=== PATIENT | male | born 2000 | race Caucasian/White ===

== ENCOUNTER 2024-12-26 01:57 | Inpatient (IN) | payer OTHER ==
[2024-12-26] VITALS (19 sets, daily range): BP systolic 91–125; BP diastolic 39–75; PULSE 53–83; RESP 14–18; TEMP 98.3–98.7; O2SAT 95–100
[~2024-12-26] VITALS: Ht 175.3 cm; Wt 60.9 kg
[2024-12-26 03:06] LABS: BASOPHILS # (AUTO) 0.1 X10'3 (0-0.2); BASOPHILS % (AUTO) 0.5 % (0-1); EOSINOPHILS % (AUTO) 0.3 % (0-6); HEMATOCRIT 37.1 % (42.0-52.0); HEMOGLOBIN 12.1 g/dl (14.0-17.9); LYMPHOCYTES # (AUTO) 1.5 X10'3 (1.1-4.8); LYMPHOCYTES % (AUTO) 14.3 % (21-51); MEAN CORPUSCULAR HEMOGLOBIN 28.8 PG (27.0-31.0); MEAN CORPUSCULAR HGB CONC 32.5 g/dL (33.0-36.5); MEAN CORPUSCULAR VOLUME 88.5 FL (78-98); MEAN PLATELET VOLUME 7.6 FL (7.4-10.4); MONOCYTES # (AUTO) 1.1 X10'3 (0-0.9); MONOCYTES % (AUTO) 10.5 % (2-12); NEUTROPHILS # (AUTO) 7.9 X10'3 (1.8-7.7); NEUTROPHILS % (AUTO) 74.4 % (42-75); PLATELET COUNT 215 X10'3 (140-440); RED BLOOD COUNT 4.19 X10'6 (4.70-6.10); RED CELL DISTRIBUTION WIDTH 13.4 % (11.5-14.5); WHITE BLOOD COUNT 10.6 X10'3 (4.5-11.0)
[2024-12-26 03:25] LABS: ALANINE AMINOTRANSFERASE 20 U/L (12-78); ALBUMIN 3.1 G/DL (3.4-5.0); ALBUMIN/GLOBULIN RATIO 0.8 (1.1-1.5); ALKALINE PHOSPHATASE 55 IU/L (46-116); ANION GAP 9 (8-16); ASPARTATE AMINO TRANSFERASE 15 U/L (10-37); BILIRUBIN,TOTAL 0.5 MG/DL (0.1-1.0); BLOOD UREA NITROGEN 12 MG/DL (7-18); BUN/CREATININE RATIO 11.7 (10.0-20.0); CALCIUM 7.9 MG/DL (8.5-10.1); CHLORIDE 106 MMOL/L (99-107); CREATININE 1.03 MG/DL (0.60-1.10); GLUCOSE 87 MG/DL (70-104); POTASSIUM 4.5 MMOL/L (3.5-5.1); SODIUM 141 MMOL/L (135-145); TOTAL CARBON DIOXIDE 26.5 MMOL/L (24-32); TOTAL PROTEIN 7.1 G/DL (6.4-8.2); eCRCL 96 ML/MIN; eGFR 89 ML/MIN
[2024-12-26] MEDS ORDERED: magnesium sulf-water 4G/100mL 100 ML IV PRN (04:25)
[2024-12-26] MEDS ORDERED: magnesium Cl slow-release 64mg tablet PO PRN (04:25)
[2024-12-26] MEDS ORDERED: mag hydrox/Alum hydrox/simeth 30ml oral suspension PO PRN (04:25)
[2024-12-26] MEDS ORDERED: morphine 2 MG/ML inj. syringe IV PRN ×2 (04:25→16:35)
[2024-12-26] MEDS ORDERED: magnesium hydroxide 30ml (MOM) UD suspension PO PRN (04:25)
[2024-12-26] MEDS ORDERED: acetaminophen 325mg tablet PO PRN (04:25)
[2024-12-26] MEDS ORDERED: potassium Cl 40MEQ/1/2NS 520ml 520 ML IV PRN (04:25)
[2024-12-26] MEDS ORDERED: magnesium sulf-water 2g/50mL 50 ML IV PRN (04:25)
[2024-12-26] MEDS ORDERED: ondansetron/PF 4mg/2ml inj IV PRN ×2 (04:25→16:35)
[2024-12-26] MEDS ORDERED: potassium Cl 20 mEq SR tablet PO PRN ×2 (04:25)
[2024-12-26 04:51] LABS: C-REACTIVE PROTEIN 3.95 MG/DL (0.0-0.5)
[2024-12-26] MEDS: normal saline 1000ml 1,000 ML IV SCH (06:04)
[2024-12-26] MEDS: mesalamine 1.2gm ER tablet PO SCH (06:13)
[2024-12-26 07:34] LABS: MAGNESIUM 2.1 MG/DL (1.5-2.4); POTASSIUM 4.4 MMOL/L (3.5-5.1)
[2024-12-26] MEDS: heparin, porcine 5000 units/ml vial SQ SCH (08:00)
[2024-12-26] MEDS: docusate sod 100mg capsule PO SCH (08:00)
[2024-12-26] MEDS: K and/or MAG REPLACEMENT MC SCH (08:00)
[2024-12-26] MEDS: prednisone 10mg tablet PO SCH (08:30)
[2024-12-26] MEDS: CefTRIAXone 2gm/D5W 50ml BAG 50 ML IV SCH (08:43)
[2024-12-26] MEDS: morphine 2 MG/ML inj. syringe IV PRN (08:44)
[2024-12-26] MEDS: metroNIDAZOLE-Flagyl 500mg/NS 100 ML IV SCH (10:09)
[2024-12-26] MEDS ORDERED: LIDOcaine 1% 30ml preserv. free vial ONE (13:49)
[2024-12-26] MEDS ORDERED: BUPIVAcaine 2.5mg/ml inj 50ml vial (contains preservative) ONE (13:49)
[2024-12-26] MEDS ORDERED: USTE45DI SUBCUT (15:38)
[2024-12-26] MEDS ORDERED: enalaprilat 1.25mg/ml 2ml vial IV PRN (16:35)
[2024-12-26] MEDS ORDERED: morphine 4 MG/ML inj SYRINge IV PRN (16:35)
[2024-12-26] MEDS ORDERED: proCHLORperazine 10 MG/2 ml inj IV PRN (16:35)
[2024-12-26] MEDS ORDERED: labetalol 20mg/4ml (5mg/ml) syringe IV PRN (16:35)
[2024-12-26] MEDS ORDERED: meperidine/PF 25mg/ml syringe IV PRN ×3 (16:35)
[2024-12-26] MEDS: ringers solution, lacted 1,000 ML IV SCH (16:35)
[2024-12-26] MEDS: dextrose 50%-water 50ml dispensing syringe IV ONE ×2 (17:22)
[2024-12-26] MEDS ORDERED: fentaNYL/PF 50MCG/1 ML 2ML syringe ONE (18:00)
[2024-12-26] MEDS ORDERED: midazolam 1 mg/ML 2ml injection ONE (18:00)
[2024-12-26] MEDS ORDERED: LIDOcaine 2% (20mg/ml) 5ml vial ONE (18:01)
[2024-12-26] MEDS ORDERED: propofol inj 20 ML IV ONE (18:01)
[2024-12-26] MEDS ORDERED: sevoflurane 250ml liquid IH ONE (18:02)
[2024-12-26] MEDS ORDERED: rocuronium 10mg/ml inj IV ONE (18:03)
[2024-12-26] MEDS ORDERED: ondansetron/PF 4mg/2ml inj ONE (18:26)
[2024-12-26] MEDS ORDERED: neostigmine methylsulfate 1 MG/ML 10ml vial ONE (18:59)
[2024-12-26] MEDS ORDERED: glycopyrrolate 0.2mg/ml inj ONE (18:59)
[2024-12-26] MEDS ORDERED: naloxone 0.4 mg/ml inj IV PRN (19:35)
[2024-12-26] MEDS ORDERED: meperidine/PF 100mg/ml syringe IV PRN ×3 (19:37→19:38)
[2024-12-26] MEDS: HYDROcodone/acetaminophen 5mg/325mg tablet PO PRN (22:53)
[2024-12-27 02:02] VITALS: BP 113/53; PULSE 73; RESP 17; TEMP 98.7; O2SAT 96
[2024-12-27 06:00] VITALS: BP 101/43; PULSE 57; RESP 15; TEMP 97.9; O2SAT 97
[2024-12-27 06:25] LABS: BASOPHILS % (AUTO) 0.1 % (0-1); EOSINOPHILS % (AUTO) 0 % (0-6); HEMATOCRIT 37.5 % (42.0-52.0); HEMOGLOBIN 12.6 g/dl (14.0-17.9); LYMPHOCYTES # (AUTO) 0.5 X10'3 (1.1-4.8); LYMPHOCYTES % (AUTO) 5.4 % (21-51); MEAN CORPUSCULAR HEMOGLOBIN 29.2 PG (27.0-31.0); MEAN CORPUSCULAR HGB CONC 33.5 g/dL (33.0-36.5); MEAN CORPUSCULAR VOLUME 87.2 FL (78-98); MONOCYTES # (AUTO) 0.2 X10'3 (0-0.9); MONOCYTES % (AUTO) 1.8 % (2-12); NEUTROPHILS # (AUTO) 9.2 X10'3 (1.8-7.7); NEUTROPHILS % (AUTO) 92.7 % (42-75); PLATELET COUNT 253 X10'3 (140-440); RED CELL DISTRIBUTION WIDTH 12.9 % (11.5-14.5); WHITE BLOOD COUNT 9.9 X10'3 (4.5-11.0)
[2024-12-27 06:55] LABS: ALANINE AMINOTRANSFERASE 18 U/L (12-78); ALBUMIN 2.9 G/DL (3.4-5.0); ALBUMIN/GLOBULIN RATIO 0.7 (1.1-1.5); ALKALINE PHOSPHATASE 60 IU/L (46-116); ANION GAP 4 (8-16); ASPARTATE AMINO TRANSFERASE 9 U/L (10-37); BILIRUBIN,TOTAL 0.4 MG/DL (0.1-1.0); BLOOD UREA NITROGEN 13 MG/DL (7-18); BUN/CREATININE RATIO 13.4 (10.0-20.0); CALCIUM 8.6 MG/DL (8.5-10.1); CHLORIDE 105 MMOL/L (99-107); CREATININE 0.97 MG/DL (0.60-1.10); GLUCOSE 155 MG/DL (70-104); MAGNESIUM 2.2 MG/DL (1.5-2.4); POTASSIUM 4.6 MMOL/L (3.5-5.1); SODIUM 138 MMOL/L (135-145); TOTAL CARBON DIOXIDE 29.1 MMOL/L (24-32); TOTAL PROTEIN 7.3 G/DL (6.4-8.2); eCRCL 102 ML/MIN; eGFR > 90 ML/MIN
[2024-12-27 08:00] VITALS: RESP 14; O2SAT 97
[2024-12-27] MEDS: mesalamine 1.2gm ER tablet PO SCH (08:15)
[2024-12-27] MEDS ORDERED: HYDR-3973 PO (08:43)
[2024-12-27] MEDS ORDERED: AMOX-580 PO (08:58)
[2024-12-27] MEDS: HYDROcodone/acetaminophen 10/325mg tab PO PRN (11:26)
== END 2024-12-27 13:25 | disposition home or self-care (01) | DRG 394 ==
LOC: ER 01:59 → ED HOLD 02:44 → EDBEDREQTM 09:47 → SUR 3N 11:16
PROVIDERS: ADMIT Internal Medicine Pulmonary Disease; ATTEND Internal Medicine
PROC: 0HD9XZZ Extraction of Perineum Skin, External Approach (ICD-10-PCS; 2024-12-26)
PROC: 3E0T3BZ Introduction of Anesthetic Agent into Peripheral Nerves and Plexi, Percutaneous Approach (ICD-10-PCS; 2024-12-26)
PROC: 0D9P30Z Drainage of Rectum with Drainage Device, Percutaneous Approach (ICD-10-PCS; principal; 2024-12-26 18:02)
DX: K61.2 Anorectal abscess (principal); K50.90 Crohn's disease, unspecified, without complications; K61.5 Supralevator abscess; K64.4 Residual hemorrhoidal skin tags; Z88.1 Allergy status to other antibiotic agents
CPT/HCPCS: 36415; 71045; 80053; 82948; 83605; 83735; 84132; 84145; 85025; 85651; 86140; 87070; 87075; 87077; 87081; 87186; 99285; A4215; A4618; A6209; A6253; A6407; A6449; A7000; G0378; J0696; J1100; J1644; J2003; J2250; J2270; J2405; J2704; J2710; J3010; J3490; J7030; J7120; J7512